=== PATIENT | male | born 1985 | race Caucasian/White ===

== ENCOUNTER 2016-10-03 19:41 | Emergency (ER) | payer MEDICAID ==
[2016-10-03 21:26] VITALS: BP 172/89
== END 2016-10-03 21:26 | disposition home or self-care (01) ==
LOC: ED 19:41
DX: S92.515A Nondisplaced fracture of proximal phalanx of left lesser toe(s), initial encounter for closed fracture (principal); W22.8XXA Striking against or struck by other objects, initial encounter; Y93.89 Activity, other specified; Y92.89 Other specified places as the place of occurrence of the external cause; Y99.8 Other external cause status